=== PATIENT | female | born 1995 | race Caucasian/White ===

== ENCOUNTER → 2017-12-11 | Outpatient (CLI) | payer OTHER ==
--- NOTE | 2017-12-11 17:18 | US ---
EXAMINATION TYPE: US thyroid st tissue head/neck DATE OF EXAM: 12/11/2017 COMPARISON: NONE CLINICAL HISTORY: E04.9 Enlarged Thyroid. GLAND SIZE: Right Lobe: 4.3 x 1.3 x 1.1 cm Overall Parenchyma: homogenous Left Lobe: 3.9 x 1.1 x 0.9 cm Overall Parenchyma: homogeneous Isthmus Thickness: 0.3 cm NODULES RIGHT: # of nodules measured on right: 0 LEFT: # of nodules measured on left: 0 ISTHMUS: # of nodules measured in the isthmus: 0 Bilateral neck scanned, no evidence of lymphadenopathy. Normal thyroid ultrasound. IMPRESSION: Thyroid gland appears sonographically normal.
== END ==
LOC: RADUSWWP 16:45
PROVIDERS: ATTEND Internal Medicine
DX: E04.9 Nontoxic goiter, unspecified (principal)
CPT/HCPCS: 76536

== ENCOUNTER 2019-01-10 21:51 | Outpatient (CLI) | payer OTHER ==
[2019-01-10 22:49] VITALS: RESP 16
[2019-01-10 22:51] LABS: Appearance,Urine Turbid (Clear); Bilirubin,Urine Negative (Negative); Blood,Urine Moderate (Negative); Color,Urine Yellow; Glucose,Urine (UA) Negative (Negative); Ketones,Urine Negative (Negative); Leukocyte Esterase,Urine Large (Negative); Mucus,Urine Rare /hpf; Nitrite,Urine Negative (Negative); Protein,Urine Trace (Negative); RBC,Urine 3 /hpf (0-5); Specific Gravity,Urine 1.015 (1.001-1.035); Squamous Epithelial Cell,Urine 9 /hpf (0-4); Urobilinogen,Urine <2.0 mg/dL (<2.0); WBC,Urine 5 /hpf (0-5)
[2019-01-10 23:29] VITALS: BP 108/59; PULSE 77; TEMP 97.1
--- NOTE | 2019-01-12 10:29 | P.MSEPDOC ---
Presenting Problems - Arrival Data Date of Arrival on Unit: 01/10/19 Time of Arrival on Unit: 21:51 Mode of Transport: Wheelchair - Complaint OB-Reason for Admission/Chief Complaint: Possible Onset of Labor Comment: Patient states "back pain" started this morning and is intermittent but she can not tell an exact frequency. Medical History - Information : 2 Para: 1 Term: 1 : 0 Abortions: Spontaneous or Elective: 0 Number of Living Children: 1 - Gestational Age Gestational Age by MIKE (wks/days): 35 Weeks and 4 Days Review of Systems - Review of Systems Constitutional: No problems Breast: No problems ENT: No problems Cardiovascular: No problems Respiratory: No problems Gastrointestinal: No problems Genitourinary: No problems Musculoskeletal: No problems Neurological: No problems Skin: No problems Vital Signs - Temperature Temperature: 97.1 F Temperature Source: Temporal Artery Scan - Pulse Right Brachial Pulse Rate: 77 Pulse Assessment Method: Automatic Cuff - Respirations Respiratory Rate: 16 Oxygen Delivery Method: Room Air - Blood Pressure Right Arm Blood Pressure: 108/59 Blood Pressure Mean: 75 Blood Pressure Source: Automatic Cuff Medical Screen Scoring (Pre) - Cervical Exam Dilation: 1-3 cm = 1 Effacement: More than 50% = 2 Membranes: Intact - Uterine Contractions Frequency: > 5 minutes apart = 1 - Maternal Vital Signs Maternal Temperature: N/A Maternal Blood Pressure: N/A Signs of Preeclampsia: N/A Maternal Respirations: N/A - Maternal Trauma Maternal Trauma: N/A - Assessment - Baby A Baseline FHR: 125 Heart Rate - NICHD Category: Category I (Normal) = 0 NST: Reactive - Total Score - Baby A Total Score - Baby A: 4 - Total Score - Baby B Total Score - Baby B: 4 - Total Score - Baby C Total Score - Baby C: 4 - Level of Risk - Baby A Level of Risk - Baby A: Low (0-5) - Level of Risk - Baby B Level of Risk - Baby B: Low (0-5) - Level of Risk - Baby C Level of Risk - Baby C: Low (0-5) Physician Notification (Pre) - Physician Notified Physician Notified Date: 01/10/19 Physician Notified Time: 22:30 Physician/Practitioner Notifed:: Dr. Sanders Spoke With: Dr. Sanders New Order Received: Yes - Notification Comment Comment: Dr. Sanders would like for patient to be orally hydrated and for a urinalysis to be sent. Cervical re-check to be done in one hour from prior exam. Medical Screen Scoring (Post) - Cervical Exam Dilation: 1-3 cm = 1 Effacement: More than 50% = 2 Membranes: Intact - Uterine Contractions Frequency: N/A Duration: N/A Intensity: N/A - Maternal Vital Signs Maternal Temperature: N/A Maternal Blood Pressure: N/A Signs of Preeclampsia: N/A Maternal Respirations: N/A - Pain Assessment Pain Location and Character: Anterior, Back Pain Scale Used: Numeric (1 - 10) Pain Intensity: 2 Pain Management Goal: 5 Pain Description: *Acute, Aching Pain Radiation Location: none Pain Frequency: Intermittent Pain Duration Units: Hours Pain Behavior: None Exhibited Pain Aggravating Factors: None - Maternal Trauma Maternal Trauma: N/A - Assessment - Baby A Heart Rate: 125 Heart Rate - NICHD Category: Category I (Normal) = 0 NST: Reactive - Total Score Total Score - Baby A: 3 Total Score - Baby B: 3 Total Score - Baby C: 3 - Post Treatment Level of Risk Post Treatment Level of Risk - Baby A: Low (0-5) Post Treatment Level of Risk - Baby B: Low (0-5) Post Treatment Level of Risk - Baby C: Low (0-5) Physician Notification (Post) - Physician Notified Physician Notified Date: 01/10/19 Physician Notified Time: 23:15 Physician/Practitioner Notified:: Dr. Sanders Spoke With: Dr. Sanders New Order Received: Yes - Notification Comment Comment: Patients lab results, maternal and status, and cervical exam recheck relayed to Dr. Sanders. Dr. Sanders states urinalysis seems to be contaminated and that patient can be discharged with instructions to stay hydrated and keep follow up appointment with Dr. Bell. patient updated and in agreement. Disposition - Disposition OB Disposition: Discharge to home Discharge Date: 01/10/19 Discharge Time: 23:25 I agree with the RN Medical Screening Exam: Yes Risk & Benefit of care provided described in d/c instruction: Yes Diagnosis: FALSE LABOR BEFORE 37 COMPLETED WEEKS OF GEST, THIRD TRI
== END 2019-01-10 23:40 | disposition home or self-care (01) ==
LOC: FBPOP 21:51
PROVIDERS: ATTEND Obstetrics & Gynecology
DX: O47.03 False labor before 37 completed weeks of gestation, third trimester (principal); Z3A.35 35 weeks gestation of pregnancy
CPT/HCPCS: 59025; 81001; 99213

== ENCOUNTER 2019-01-17 07:52 | Outpatient (CLI) | payer OTHER ==
[2019-01-17 08:24] VITALS: BP 97/57; PULSE 72; RESP 14; TEMP 97.8
--- NOTE | 2019-01-28 15:37 | P.MSEPDOC ---
Presenting Problems - Arrival Data Date of Arrival on Unit: 01/17/19 Time of Arrival on Unit: 07:50 Mode of Transport: Ambulatory - Complaint OB-Reason for Admission/Chief Complaint: Other Comment: "burning" sensation of skin underneath breasts Medical History - Information : 2 Para: 1 Term: 0 : 0 Abortions: Spontaneous or Elective: 0 Number of Living Children: 1 - Gestational Age Gestational Age by MKIE (wks/days): 36 Weeks and 4 Days Review of Systems - Review of Systems Constitutional: No problems Breast: No problems ENT: No problems Cardiovascular: No problems Respiratory: No problems Gastrointestinal: No problems Genitourinary: No problems Musculoskeletal: No problems Neurological: No problems Skin: No problems Vital Signs - Temperature Temperature: 97.8 F Temperature Source: Oral - Pulse Pulse Oximetery Pulse Rate: 72 Pulse Assessment Method: Pulse Oximetry - Respirations Respiratory Rate: 14 Oxygen Delivery Method: Room Air - Blood Pressure Right Arm Blood Pressure: 97/57 Blood Pressure Mean: 70 Blood Pressure Source: Automatic Cuff Medical Screen Scoring (Pre) - Cervical Exam Dilation: Exam Deferred Effacement: Exam Deferred - Uterine Contractions Frequency: N/A Duration: N/A Intensity: N/A - Maternal Vital Signs Maternal Temperature: N/A Maternal Blood Pressure: N/A Signs of Preeclampsia: N/A Maternal Respirations: N/A - Maternal Trauma Maternal Trauma: N/A - Assessment - Baby A Baseline FHR: 135 Heart Rate - NICHD Category: Category I (Normal) = 0 NST: Reactive Position: N/A Station: N/A - Total Score - Baby A Total Score - Baby A: 0 - Total Score - Baby B Total Score - Baby B: 0 - Total Score - Baby C Total Score - Baby C: 0 - Level of Risk - Baby A Level of Risk - Baby A: Low (0-5) - Level of Risk - Baby B Level of Risk - Baby B: Low (0-5) - Level of Risk - Baby C Level of Risk - Baby C: Low (0-5) Physician Notification (Post) - Physician Notified Physician Notified Date: 01/17/19 Physician Notified Time: 08:10 Physician/Practitioner Notified:: tessie Spoke With: tessie New Order Received: Yes - Notification Comment Comment: pt may be discharged home Disposition - Disposition OB Disposition: Physician follow up in office, Discharge to home Discharge Date: 01/17/19 Discharge Time: 08:45 I agree with the RN Medical Screening Exam: Yes Risk & Benefit of care provided described in d/c instruction: Yes Diagnosis: RELATED CONDITIONS, UNSPECIFIED, THIRD TRIMESTER
== END 2019-01-17 08:45 | disposition home or self-care (01) ==
LOC: FBPOP 07:52
PROVIDERS: ATTEND Obstetrics & Gynecology
DX: O26.93 Pregnancy related conditions, unspecified, third trimester (principal); Z3A.36 36 weeks gestation of pregnancy
CPT/HCPCS: 59025; 99213

== ENCOUNTER 2019-02-05 06:03 | Inpatient (IN) | payer OTHER ==
[2019-02-05] MEDS ORDERED: METHYLERGONOVINE 0.2 MG/ML 1 ML AMP IM PRN (06:12)
[2019-02-05] MEDS ORDERED: CARBOPROST TROMETHAMINE 250 MCG/ML 1 ML AMP IM PRN (06:12)
[2019-02-05] MEDS ORDERED: TERBUTALINE 1 MG/ML VIAL SQ PRN (06:12)
[2019-02-05] MEDS ORDERED: OXYTOCIN 10 UNIT/ML 1 ML VIAL IM PRN (06:12)
[2019-02-05] MEDS ORDERED: LIDOCAINE 0.5% (PF) 5 MG/ML (50 ML SDV) SQ PRN (06:12)
[2019-02-05] MEDS ORDERED: OXYTOCIN 30 UNITS/500 ML NS 30 UNIT in SALINE 1 500ML.BAG IV SCH (06:15)
[2019-02-05 06:18] VITALS: BMI 23.7
[2019-02-05] MEDS: LACTATED RINGERS 1,000 ML IV SCH ×2 (06:20→07:43)
[2019-02-05 06:27] LABS: Basophils # (A) 0.1 k/uL (0-0.2); Basophils % (A) 0 %; Eosinophils # (A) 0.2 k/uL (0-0.7); Eosinophils % (A) 1 %; HCT 31.3 % (34.0-46.0); HGB 9.7 gm/dL (11.4-16.0); Hypochromasia Marked; Lymphocytes # (A) 3.2 k/uL (1.0-4.8); Lymphocytes % (A) 25 %; MCH 24.5 pg (25.0-35.0); MCHC 31.1 g/dL (31.0-37.0); Mean Platelet Volume 8.5; Monocytes # (A) 0.6 k/uL (0-1.0); Monocytes % (A) 4 %; Neutrophils # (A) 8.6 k/uL (1.3-7.7); Neutrophils % (A) 67 %; Platelet Count 366 k/uL (150-450); Poikilocytosis Slight; RBC 3.97 m/uL (3.80-5.40); RDW 14.7 % (11.5-15.5); WBC 12.9 k/uL (3.8-10.6)
[2019-02-05] MEDS ORDERED: ePHEDrine SULFATE/0.9% NACL/PF 50 MG/5 ML SYRINGE IV ONE (07:17)
[2019-02-05] MEDS ORDERED: PHENYLEPHRINE-0.9% NACL SYG 1 MG/10 ML SYRINGE ONE (07:17)
[2019-02-05] MEDS ORDERED: fentaNYL (PF) 50 MCG/ML 5 ML AMP ONE (07:17)
[2019-02-05] MEDS ORDERED: ROPIVACAINE 5MG/ML 20ML VIAL ONE (07:17)
[2019-02-05] MEDS ORDERED: SODIUM CHLORIDE 0.9% 100 ML BAG ONE (07:17)
--- NOTE | 2019-02-05 07:28 | P.HPOB ---
History of Present Illness H&P Date: 02/05/19 This is a 23-year-old white female 3 para 1011 EDC 02/10/2019 at 39-3/7 weeks' gestation. Patient presented for induction, however is in early spontaneous labor. Fetus is been active throughout the . She denies fluid leakage or vaginal bleeding. Past medical history is significant for herpes simplex, no lesions at present. Irritable bowel syndrome. Past surgical history D&C in the past. Current medications vitamins daily. ALLERGIES include Bactrim to which reports sweating, and Flagyl to which she does not report a reaction. Family history significant for diabetes. Social history significant for H&P and single, boyfriend is present and involved. She denies tobacco, alcohol use, or any drug use. history is significant for blood type O+, rubella status immune. VDRL testing, urine culture, hepatitis B surface antigen, HIV testing, gonorrhea and chlamydia cultures, group B strep cultures all negative. One-hour Glucola 111. On exam this is a pleasant white female who is 5 foot 6 inches, 147 pounds, blood pressure 123/79. The general physical exam is within normal limits. The cervix is 6 cm dilated, 70% effaced, -2 station, vertex presentation, anterior. Artificial amniorrhexis reveals clear fluid. heart rate is consistent wit h reactive NST. Impression: 39-3/7 weeks intrauterine , active spontaneous labor. Plan: Continue close maternal and surveillance. Epidural has been requested and anesthesia is at the bedside. Anticipate normal spontaneous vaginal delivery. Review of Systems Constitutional: Reports as per HPI Past Medical History Past Medical History: No Reported History History of Any Multi-Drug Resistant Organisms: None Reported Additional Past Surgical History / Comment(s): D&C Past Anesthesia/Blood Transfusion Reactions: No Reported Reaction Past Psychological History: Anxiety Smoking Status: Never smoker Past Alcohol Use History: None Reported Past Drug Use History: None Reported - Past Family History Mother Family Medical History: Diabetes Mellitus Medications and Allergies Home Medications Medication Instructions Recorded Confirmed Type Pnv,Calcium 72/Iron/Folic Acid 1 each PO DAILY 01/10/19 02/05/19 History [ Plus Tablet] Allergies Allergy/AdvReac Type Severity Reaction Status Date / Time Penicillins Allergy Intermediate Nausea Verified 02/05/19 06:11 sulfamethoxazole Allergy Intermediate Nausea Verified 02/05/19 06:11 [From Bactrim] trimethoprim [From Bactrim] Allergy Intermediate Nausea Verified 02/05/19 06:11 Exam Vital Signs Temp Pulse Resp BP 02/05/19 06:15 97.2 F L 88 20 123/79 Intake and Output 02/04/19 02/05/19 02/05/19 22:59 06:59 14:59 Other: Weight 66.678 kg See dictation under HPI please Results Result Diagrams: 02/05/19 06:15 Abnormal Lab Results - Last 24 Hours (Table) 02/05/19 Range/Units 06:15 WBC 12.9 H (3.8-10.6) k/uL Hgb 9.7 L (11.4-16.0) gm/dL Hct 31.3 L (34.0-46.0) % MCV 79.0 L (80.0-100.0) fL MCH 24.5 L (25.0-35.0) pg Neutrophils # 8.6 H (1.3-7.7) k/uL Assessment and Plan Assessment: 39-3/7 weeks intrauterine , active spontaneous labor. Plan: Epidural being placed per patient request. Continue close maternal and surveillance. Anticipate normal spontaneous vaginal delivery. Time with Patient: Less than 30
[2019-02-05] MEDS ORDERED: diphenhydrAMINE 50 MG/ML 1 ML VIAL IVP PRN ×2 (12:49)
[2019-02-05] MEDS ORDERED: ZOLPIDEM 5 MG TAB PO PRN (12:49)
[2019-02-05] MEDS ORDERED: ACETAMINOPHEN TAB 325 MG TAB PO PRN (12:49)
[2019-02-05] MEDS ORDERED: LANOLIN CREAM 5 GM TUBE TOPICAL PRN (12:49)
[2019-02-05] MEDS ORDERED: HYDROCORTISONE 2.5% RECTAL CREAM 30 GM TUBE RECTAL PRN (12:49)
[2019-02-05] MEDS ORDERED: WITCH HAZEL 1 EACH MED..PAD TOPICAL PRN (12:49)
[2019-02-05] MEDS ORDERED: diphenhydrAMINE 25 MG CAP PO PRN (12:49)
[2019-02-05] MEDS ORDERED: BENZOCAINE/MENTHOL SPRAY 1 GM/SPRAY AEROSOL TOPICAL PRN (12:49)
[2019-02-05] MEDS ORDERED: diphenhydrAMINE 50 MG CAP PO PRN (12:49)
[2019-02-05] MEDS ORDERED: SIMETHICONE 80 MG CHEWABLE PO PRN (12:49)
--- NOTE | 2019-02-05 12:49 | P.PROBDLV ---
Vaginal Delivery Note - . Vaginal Delivery Note: This is a 23-year-old white female 3 para 1011 EDC 02/10/2019 at 39-3/7 weeks' gestation. Patient presented today for induction but was noted to be in active spontaneous labor. is remarkable for rubella status immune, blood type O positive, group B strep cultures negative. Please see dictated history and physical for details. Artificial amniorrhexis revealed clear fluid. Oxytocin was started and titrated per hospital protocol. Patient requested an epidural and this was placed per staff. She progressed well through the first stage of labor and was judged to be completely dilated at 1205 hrs. Perineal body was prepped and draped and she began the second stage of labor. With excellent maternal expulsive efforts the head delivered occiput anterior and restituted accordingly. There was no nuchal cord noted. The right or anterior shoulder was gently delivered from underneath the pubic symphysis at which time the oropharynx, nasopharynx, and external nares were all bulb suctioned on the perineal body. Patient was officially delivered of a liveborn female infant at 1227 hours. Umbilical cord was doubly clamped and ligated, he she was handed to waiting nurses for evaluation where scores of 9 and 9 at one and 5 minutes respectively were given. Placenta delivered spontaneously, it was inspected and noted to be intact with trivascular cord at 1237 hours. At this time the perineal body is redraped. Inspection of the cervix, vagina, perineum, periurethral, and perirectal areas revealed no lacerations and no defects. Fundus is firm and in the midline, symmetric and 18 week size upon completion of delivery. All sponge needle and enhancement counts are correct. Total estimated blood loss 400 mL's. Patient and her family are allowed to begin the bonding experience in the LDR.
[2019-02-05] MEDS ORDERED: OXYTOCIN 20 UNITS/1000 ML NS 1,000 ML IV SCH (13:00)
[2019-02-05] MEDS: IBUPROFEN 600 MG TAB PO PRN (13:30)
[2019-02-05] MEDS ORDERED: SENNOSIDES-DOCUSATE SODIUM 1 EACH TAB PO SCH (20:00)
[2019-02-06 01:37] VITALS: PULSE 72
[2019-02-06] MEDS: IBUPROFEN 600 MG TAB PO PRN ×2 (05:49→15:29)
[2019-02-06 07:52] LABS: Basophils % (A) 0 %; Eosinophils # (A) 0.1 k/uL (0-0.7); Eosinophils % (A) 0 %; HCT 26.1 % (34.0-46.0); Hypochromasia Moderate; Lymphocytes # (A) 2.6 k/uL (1.0-4.8); Lymphocytes % (A) 14 %; MCH 24.1 pg (25.0-35.0); MCV 77.6 fL (80.0-100.0); Mean Platelet Volume 8.2; Monocytes % (A) 5 %; Neutrophils # (A) 14.2 k/uL (1.3-7.7); Neutrophils % (A) 78 %; Platelet Count 301 k/uL (150-450); RBC 3.36 m/uL (3.80-5.40); RDW 14.6 % (11.5-15.5); WBC 18.2 k/uL (3.8-10.6)
[2019-02-06 08:01] LABS: HGB 8.1 gm/dL (11.4-16.0)
[2019-02-06 09:37] VITALS: BP 102/58; RESP 16; TEMP 97.6
--- NOTE | 2019-02-06 13:01 | P.DS ---
Providers Date of admission: 02/05/19 06:03 Expected date of discharge: 02/06/19 Attending physician: Khushboo Bell Primary care physician: Stated None Hospital Course: This is a 23-year-old white female 3 para 111 EDC 02/10/2019 at 39-3/7 weeks' gestation. Patient presented for induction, but was judged to be in early spontaneous labor. is remarkable for blood type O+, rubella status immune, group B strep cultures negative. Please see dictated history and physical for details. Oxytocin was started per hospital protocol. Epidural was placed per her request. Artificial amniorrhexis revealed clear fluid. Patient progressed to the first stage of labor and was judged to be completely dilated at 1205. She began the second stage of labor at that time. heart rate was reassuring throughout the first and second stages of labor. With excellent maternal expulsive efforts, patient delivered vaginally a liveborn female infant with scores of 9 and 9 at one and 5 minutes respectively. weighed 8 lbs. 2 oz. or 3690 g. Placenta delivered spontaneously, intact with trivascular cord. Total estimated blood loss 400 mL's. No lacerations or defects noted. Please see dictated delivery note for details. This morning the patient is doing well. She is voiding, ambulating, passing flatus without difficulty. Vital signs are stable and she is afebrile. Fundus is firm and in the midline, symmetric and 18 week size. Breast-feeding is going well. Breasts are not engorged. Evans infant is doing well for discharge home. Patient will follow-up with me in the office in 6 weeks. I reminded her no intercourse, tampons or douching. She is contemplating tubal ligation, and this will be scheduled on an outpatient basis. She is reminded to use Advil, Motrin or Aleve as needed for pain. She has a breast pump and breast-feeding is going well. She will continue taking her vitamin daily. She will call me with any fevers shakes or chills, foul smelling or copious lochia, with any pain not alleviated by [id number] products, or indeed with any concerns. Patient Condition at Discharge: Good Plan - Discharge Summary Discharge Rx Participant: No New Discharge Prescriptions: No Action Pnv,Calcium 72/Iron/Folic Acid [ Plus Tablet] 1 each PO DAILY Discharge Medication List Pnv,Calcium 72/Iron/Folic Acid [ Plus Tablet] 1 each PO DAILY 01/10/19 [History] Follow up Appointment(s)/Referral(s): Khushboo Bell MD [STAFF PHYSICIAN] - 6 Weeks Discharge Disposition: HOME SELF-CARE
== END 2019-02-06 16:14 | disposition home or self-care (01) | DRG 806 ==
LOC: 4FBP 06:03
PROVIDERS: ADMIT Obstetrics & Gynecology; ATTEND Obstetrics & Gynecology
PROC: 10E0XZZ Delivery of Products of Conception, External Approach (ICD-10-PCS; principal; 2019-02-05)
PROC: 00HU33Z Insertion of Infusion Device into Spinal Canal, Percutaneous Approach (ICD-10-PCS; 2019-02-05)
PROC: 3E0R3BZ Introduction of Anesthetic Agent into Spinal Canal, Percutaneous Approach (ICD-10-PCS; 2019-02-05)
DX: O99.62 Diseases of the digestive system complicating childbirth (principal); O98.52 Other viral diseases complicating childbirth; Z37.0 Single live birth; O99.344 Other mental disorders complicating childbirth; K58.9 Irritable bowel syndrome, unspecified; F41.9 Anxiety disorder, unspecified; B00.9 Herpesviral infection, unspecified; Z3A.39 39 weeks gestation of pregnancy; Z88.2 Allergy status to sulfonamides; Z88.0 Allergy status to penicillin; Z83.3 Family history of diabetes mellitus
CPT/HCPCS: 85025; 86850; 86900; 86901

== ENCOUNTER → 2019-04-04 | Outpatient (CLI) | payer OTHER ==
[2019-04-04 13:58] LABS: Anisocytosis Slight; Basophils % (A) 0 %; Eosinophils # (A) 0.1 k/uL (0-0.7); Eosinophils % (A) 2 %; HCT 35.7 % (34.0-46.0); HGB 10.9 gm/dL (11.4-16.0); Hypochromasia Moderate; Lymphocytes # (A) 2.4 k/uL (1.0-4.8); Lymphocytes % (A) 43 %; MCHC 30.6 g/dL (31.0-37.0); MCV 81.7 fL (80.0-100.0); Mean Platelet Volume 6.4; Monocytes # (A) 0.3 k/uL (0-1.0); Monocytes % (A) 5 %; Neutrophils # (A) 2.7 k/uL (1.3-7.7); Neutrophils % (A) 47 %; Platelet Count 279 k/uL (150-450); RBC 4.37 m/uL (3.80-5.40); RDW 16.3 % (11.5-15.5); WBC 5.7 k/uL (3.8-10.6)
== END | disposition home or self-care (01) ==
LOC: LABPAT 12:25
PROVIDERS: ATTEND Obstetrics & Gynecology
DX: Z01.812 Encounter for preprocedural laboratory examination (principal)
CPT/HCPCS: 36415; 85025

== ENCOUNTER 2019-04-14 07:55 | Day surgery (SDC) | payer OTHER ==
[2019-04-11 09:59] VITALS: BMI 20.1
[~2019-04-14 07:55] MED LIST: DEXAMETHASONE SOD PHOSPHATE 10 MG/ML 1 ML VIAL IV ONE; HYDROmorphone 0.5 MG/0.5 ML SYRINGE IVP PRN; LACTATED RINGERS 1,000 ML IV SCH; LIDOCAINE 1% 20 ML VIAL (10MG/ML) FOR IV START INTRADERMA PRN; ONDANSETRON 4 MG/2 ML VIAL IVP ONE; Pre Op ABX Message 1 EACH MISC MISCELLANE ONE; SCOPOLAMINE 1.5MG/72HR PATCH TRANSDERM ONE
[2019-04-14 08:26] VITALS: BP 106/62; PULSE 77; RESP 16; TEMP 97.6
== END 2019-04-14 09:05 | disposition home or self-care (01) ==
LOC: OR 07:55
PROVIDERS: ATTEND Obstetrics & Gynecology
DX: Z30.2 Encounter for sterilization (principal); Z53.29 Procedure and treatment not carried out because of patient's decision for other reasons; K58.1 Irritable bowel syndrome with constipation; E07.9 Disorder of thyroid, unspecified; Z88.1 Allergy status to other antibiotic agents; Z88.0 Allergy status to penicillin; Z98.890 Other specified postprocedural states; Z86.19 Personal history of other infectious and parasitic diseases; Z83.3 Family history of diabetes mellitus
CPT/HCPCS: J1100; J2405

== ENCOUNTER → 2021-01-27 | Outpatient (CLI) | payer OTHER ==
--- NOTE | 2021-01-27 09:31 | US ---
EXAMINATION TYPE: US abdomen complete DATE OF EXAM: 01/27/2021 COMPARISON: NONE CLINICAL HISTORY: N94.6 Dysmenorrhea, R10 Abdominal Pain. Intermittent abdomen pain and N/V x couple months EXAM MEASUREMENTS: Liver Length: 13.7 cm Gallbladder Wall: 0.2 cm CBD: 0.4 cm Spleen: 12.5 cm Right Kidney: 9.3 x 3.4 x 5.3 cm Left Kidney: 9.8 x 5.3 x 4.9 cm Pancreas: visualized portions wnl, limited by overlying midline bowel gas Liver: wnl Gallbladder: wnl Evidence for sonographic Rivera's sign: no CBD: wnl Spleen: wnl Right Kidney: fullness of renal pelvis Left Kidney: fullness of renal pelvis Upper IVC: wnl Abd Aorta: visualized portions wnl, prox limited by overlying midline bowel gas The liver is homogenous. The intrahepatic portion of the IVC and visualized abdominal aorta are with in normal limits. There is no evidence of cholelithiasis. Common bile duct is unremarkable. The vi sualized portions of the pancreas are homogenous. The spleen is unremarkable. Kidneys are symmetric and within normal limits in size. No renal lesions are seen. IMPRESSION: Mild bilateral hydronephrosis. Correlate clinically. Consider functional study such as co ntrast-enhanced CT or nuclear medicine exam to further evaluate.
--- NOTE | 2021-01-27 09:34 | US ---
EXAMINATION TYPE: US pelvic complete DATE OF EXAM: 01/27/2021 COMPARISON: NONE CLINICAL HISTORY: N94.6 Dysmenorrhea, R10 Abdominal Pain. Intermittent abdomen pain and N/V x couple months, irregular cycles x couple months, 2, para 2 TECHNIQUE: . Transabdominal sonographic images of the pelvis were acquired. Date of LMP: 1 week ago EXAM MEASUREMENTS: Uterus: 8.5 x 4.2 x 5.4 cm Endometrial Stripe: 0.6 cm Right Ovary: 2.4 x 1.8 x 2.9 cm Left Ovary: 3.1 x 1.9 x 3.0 cm 1. Uterus: anteverted 2. Endometrium: wnl 3. Right Ovary: multiple follicles 4. Left Ovary: multiple follicles, 1.7cm dominant follicle 5. Bilateral Adnexa: wnl 6. Posterior cul-de-sac: trace free fluid Trace free fluid in pelvic cul-de-sac, nonspecific finding. Anteverted uterus. Ovaries unremarkable. IMPRESSION: No suspicious findings.
== END | disposition home or self-care (01) ==
LOC: RADUSWWP 08:27
PROVIDERS: ATTEND Family Medicine
DX: N94.6 Dysmenorrhea, unspecified (principal); N13.30 Unspecified hydronephrosis
CPT/HCPCS: 76700; 76856

== ENCOUNTER → 2021-02-16 | Outpatient (CLI) | payer OTHER ==
--- NOTE | 2021-02-16 15:04 | CT ---
EXAMINATION TYPE: CT urogram wo/w con DATE OF EXAM: 02/16/2021 COMPARISON: Ultrasound 01/27/2021 HISTORY: 25-year-old female N13.30, hydronephrosis. Changes in urination. TECHNIQUE: Contiguous axial scanning of the abdomen and pelvis performed without and with IV Contrast , patient injected with 100 mL of Isovue 300. Delayed images through the kidneys and bladder were obt ained. Coronal/sagittal reconstructions performed.. Reconstructions generated on a dedicated [employer] ent workstation. CT DLP: 848.9 mGycm Automated exposure control for dose reduction was used. FINDINGS: Heart normal size without pericardial effusion. Lung bases clear without pleural effusion. No focal liver lesion or biliary ductal dilatation. Portal venous system is patent. Gallbladder, adrenal plans, spleen, and pancreas within normal limits. No suspicious renal lesion on either side. In the right kidney, there is a single 3 mm nonobstructive renal calculus. There is mild bilateral pelvocaliectasis/hydronephrosis and mild prominence to the p roximal to mid ureters bilaterally. However, there is symmetric uptake and excretion of contrast from both kidneys bladder. No abnormal f illing defect within the renal collecting systems or along the course of either ureter. No dilated small bowel, free fluid, or free air. No mesenteric or retroperitoneal lymphadenopathy. Mo derate stool burden. No pericolonic inflammatory change. The bladder is prominently distended measuring up to 11.6 cm. In addition, there is abnormal foci of air along the anterior lateral wall. On the delayed most scan, no suspicious filling defect within th e lumen of the bladder. Uterus is anteverted. The left ovary is seen. Right ovary not clearly delineated from adjacent bowel. Trace cul-de-sac free fluid likely physiologic. Bones: S-shaped scoliosis. IMPRESSION: 1. THERE IS MILD BILATERAL PELVICALIECTASIS/HYDRONEPHROSIS BUT WITH SYMMETRIC UPTAKE AND SATISFACTORY EXCRETION OF CONTRAST FROM THE KIDNEYS. THIS MAY BE SECONDARY TO THE PROMINENT DISTENTION OF THE URI NARY BLADDER. 2. A SINGLE 3 MM NONOBSTRUCTIVE RIGHT RENAL CALCULUS. NO URETERAL CALCULUS OR SUSPICIOUS FILLING DEFE CT IDENTIFIED WITHIN THE RENAL COLLECTING SYSTEMS OR ALONG THE COURSE OF EITHER URETER. 3. ABNORMAL FOCI OF AIR ALONG THE ANTERIOR WALL OF THE BLADDER. IN THE ABSENCE OF ANY RECENT INSTRUME NTATION, CORRELATE TO EXCLUDE INFECTION.
== END | disposition home or self-care (01) ==
LOC: RADCTMAIN 10:53
PROVIDERS: ATTEND Urology
DX: N13.2 Hydronephrosis with renal and ureteral calculous obstruction (principal)
CPT/HCPCS: 74178; 74400; Q9967

== ENCOUNTER → 2021-11-24 | Day surgery (SDC) | payer OTHER ==
--- NOTE | 2021-11-30 10:22 | USB ---
Pathology Description: Location: 2 o'clock, upper outer quadrant. Marker Left Behind. Needle Type: Celero Cores: 2 Gauge: 12 The procedure of ultrasound guided core biopsy was explained to the patient. Benefits, alternatives, and risks were discussed. An informed consent was then obtained. The patient was placed in supine positioning for imaging and for the procedure. Preprocedure ultrasound redemonstrates oval well-circumscribed small lesion measuring 1.1 cm long axis II:00 position left breast. The overlying skin was prepped and draped in usual sterile fashion. Lidocaine is used as anesthetic into the skin and subcutaneous tissue up to area of concern in the right breast. Under ultrasound guidance, a 12-gauge vacuum assisted biopsy gun device was used to obtain 2 core samples. Following this, a biopsy clip was left in lesion. Ultrasound shows successful deployment of biopsy clip. Mammogram deferred due to patient age. The patient tolerated the procedure well without any immediate complication. The patient was kept in the radiology department for short stay after the procedure and then discharged home in stable condition. Low index of suspicion, not even sure true lesion. Possible focal prominent fibroglandular tissue mimicking mass. Impression: Successful, uncomplicated ultrasound guided core biopsy of area of concern in the left breast, full pathology results to follow. Pathology Results: Result: Benign, Lipoma of the breast. LEFT BREAST, 2:00, ULTRASOUND GUIDED NEEDLE CORE BIOPSY: Benign fibroadipose tissue with features suggestive of lipoma versus fibrolipoma. Breast elements are not identified. Overall Assessment: Benign Management: Diagnostic Breast Ultrasound of the left breast in 6 months. Electronically signed and approved by: Blane Rehman M.D.
== END ==
LOC: RADUSWWP 12:57
PROVIDERS: ATTEND Surgery
DX: N63.20 Unspecified lump in the left breast, unspecified quadrant (principal)
CPT/HCPCS: 88305; 19083; A4648

== ENCOUNTER → 2021-12-02 | Outpatient (CLI) | payer OTHER ==
[2021-12-02 16:01] VITALS: BP 109/72; PULSE 68; RESP 16; TEMP 98
--- NOTE | 2021-12-02 16:10 | P.GSHP ---
History of Present Illness H&P Date: 12/02/21 Chief Complaint: Lipoma versus fibrolipoma left breast ultrasound core biopsy Rema is a 26-year-old white female seen in consultation for Dr. Teixeira regarding a radiographic abnormality in her left breast. She was noted to have an area of nodularity in the left breast. Hematology Oncology Consultant and ultrasound was performed on 5321. This revealed an 8 x 9 mm lesion for which biopsy was recommended in the left breast. Biopsy was done and 6221 which was consistent with a lipoma versus a fibrolipoma. She does note some nodularity in the right breast also in the 11 o'clock position. She had an ultrasound of that area 6 months ago. She is not complaining of any nipple discharge or skin changes. She has not had any trauma or infection in the breast. She's not had any other breast surgery. Caffeine: none nicotine: none BCP: none hormones: none chocolate: several times/week Family History: maternal aunt: breast cancer Hormonal history: Menarche: 12 breast fed: yes, age at first : 20 periods regular; LMP: November 13 Surgical history: D&C breast biopsy core Medical History: scoliosis IBS Interstitial cystitis Social history: Nicotine: Negative Alcohol: Negative Drugs: Negative - Constitutional Constitutional: Denies chills, Denies fever - EENT Eyes: denies blurred vision, denies pain Ears: deny: decreased hearing, tinnitus Ears, nose, mouth and throat: Reports headache, Denies sore throat - Breasts Breasts: bilateral: as per HPI - Cardiovascular Cardiovascular: Denies chest pain, Denies shortness of breath - Respiratory Respiratory: Denies cough, Denies 7 - Gastrointestinal Gastrointestinal: Reports constipation, Reports diarrhea, Denies abdominal pain, Denies nausea, Denies vomiting - Genitourinary (Female) Genitourinary: Reports as per HPI, Denies dysuria, Denies hematuria - Menstruation Menstruation: Reports period normal - Musculoskeletal Musculoskeletal: Denies myalgias - Integumentary Integumentary: Denies pruritus, Denies rash - Neurological Neurological: Denies numbness, Denies weakness - Psychiatric Psychiatric: Reports anxiety, Reports depression - Endocrine Endocrine: Reports fatigue, Denies weight change - Hematologic/Lymphatic Comment: none - Allergic/Immunologic Allergic/Immunologic: Reports as per HPI, Reports seasonal allergies Past Medical History Past Medical History: No Reported History Additional Past Medical History / Comment(s): IBS, Anemia History of Any Multi-Drug Resistant Organisms: None Reported Additional Past Surgical History / Comment(s): D&C Past Anesthesia/Blood Transfusion Reactions: No Reported Reaction Past Psychological History: Anxiety Smoking Status: Never smoker Past Alcohol Use History: None Reported Past Drug Use History: None Reported - Past Family History Mother Family Medical History: Diabetes Mellitus Medications and Allergies Home Medications Medication Instructions Recorded Confirmed Type Multivitamin with Iron 1 each PO DAILY 04/11/19 11/14/21 History [Multivitamins with Iron] Allergies Allergy/AdvReac Type Severity Reaction Status Date / Time sulfamethoxazole Allergy Intermediate Nausea, Verified 11/14/21 11:54 [From Bactrim] sweating, dizziness trimethoprim [From Bactrim] Allergy Intermediate Nausea, Verified 11/14/21 11:54 sweating,dizziness aspirin AdvReac Unknown Nausea, Verified 11/14/21 11:54 dizzy, hot metronidazole [From Flagyl] AdvReac DIZZY Verified 11/14/21 11:54 Surgical - Exam BMI: 21 - General no distress - Eyes normal ocular movement - ENT no hearing loss - Neck trachea midline - Respiratory normal respiratory effort, clear to auscultation - Cardiovascular Heart Sounds: normal: S1, S2 - Abdomen Abdomen: soft - Integumentary normal turgor - Neurologic no disoriented, no combative - Musculoskeletal normal gait - Psychiatric oriented to time, oriented to person, oriented to place, speech is normal, memory intact Breast Exam: BRA: 34B inspection: bilateral grade 2 ptosis; right breast slightly larger than left breast palpation: right breast: Positional exam no dominant masses or nodules of concern Right axilla: No adenopathy of concern Left breast: Well-healed puncture site from core biopsy no dominant masses or nodules of concern Left axilla: No adenopathy of concern Results Ultrasound results reviewed Assessment and Plan Assessment: Impression: Ultrasound-guided core biopsy left breast benign lipoma versus fibrolipoma Fibrocystic breast changes Asymmetry of the breast Plan: Repeat left breast ultrasound in 6 months There is nothing which would warrant interventional biopsy ultrasound of the right breast at this time CC: Dr. Vanegas
== END ==
LOC: WWCWWP 15:47
PROVIDERS: ATTEND Surgery
DX: N60.19 Diffuse cystic mastopathy of unspecified breast (principal); N64.89 Other specified disorders of breast; F41.9 Anxiety disorder, unspecified; Z88.2 Allergy status to sulfonamides; Z88.6 Allergy status to analgesic agent; Z88.1 Allergy status to other antibiotic agents

== ENCOUNTER → 2022-05-29 | Outpatient (CLI) | payer OTHER ==
--- NOTE | 2022-05-29 09:14 | USB ---
Reason for Exam: Follow-up at short interval from prior study. Patient History: 11/24/2021, Benign US biopsy breast VAD LT on the left side. Technique: Method: Targeted. Findings: The upper section of the breast of the left breast and the axilla of the left breast were scanned. Recently noted to sample the lesion is redemonstrated with a clip noted within its center. No new masses are seen. Overall Assessment: Benign, BI-RAD 2 Management: Screening Mammogram of both breasts at age 40. A clinical breast exam by your physician is recommended on an annual basis and results should be correlated with mammographic findings. This exam should not preclude additional follow-up of suspicious palpable abnormalities. Results were given to the patient verbally at the time of exam. Electronically signed and approved by: Westley Fortune M.D. Radiologis
== END | disposition home or self-care (01) ==
LOC: RADUSWWP 08:47
PROVIDERS: ATTEND Surgery
DX: R92.8 Other abnormal and inconclusive findings on diagnostic imaging of breast (principal)